=== PATIENT | female | born 1990 | race African-American/Black ===

== ENCOUNTER 2022-11-23 13:30 | Outpatient (CLI) | payer OTHER, SELFPAY ==
[2022-11-23 19:40] LABS: Kit Draw Collected
== END 2022-11-23 13:31 | disposition home or self-care (01) ==
LOC: ANHGOSHLAB 13:33
PROVIDERS: PCP Family Medicine; Visit Provider Nurse Practitioner
DX: Z13.220 Encounter for screening for lipoid disorders (principal); R53.83 Other fatigue; I10 Essential (primary) hypertension; E11.9 Type 2 diabetes mellitus without complications
CPT/HCPCS: 36415